=== PATIENT | female | born 2000 | race Caucasian/White ===

== ENCOUNTER → 2021-01-07 | Outpatient (CLI) | payer BC, MEDICAID ==
--- NOTE | 2021-01-07 10:56 | Diagnostic Imaging Report ---
INDICATION: survey. TECHNIQUE: Multiple real-time grayscale images were obtained over the gravid uterus. COMPARISON: None. FINDINGS: There is a single live fetus in a breech presentation. heart rate was recorded at 143 BPM. Placenta is anterior. Amniotic fluid volume is normal. Cervical length is 3.6 cm. kidneys, bladder, and stomach are unremarkable. brain is unremarkable. There is a four-chamber heart. There is a three-vessel cord with normal insertion. spine is unremarkable. Biometrical measurements are as follows: Biparietal 4.83 cm, age 20 weeks 5 days. Head circumference 17.97 cm, age 20 weeks 3 days. Abdominal circumference 14.72 cm, age 20 weeks 1 days. Femur length 3.15 cm, age 19 weeks 6 days. Sonographic estimate age: 20 weeks 2 days. Sonographic estimated date of delivery: 05/25/2021. Estimated Weight: 325 gm (+/- 47 gm). LMP percentile: 29%. heart rate: 143 beats per minute. number: 1 of 1. IMPRESSION: Single live IUP at 20 weeks 2 days gestational age. Estimated date of confinement sonographically is 05/25/2021. Dictated by: Dictated on workstation # [id number]
== END ==
LOC: RAD 09:42
PROVIDERS: ATTEND Nurse Practitioner Women's Health
DX: Z34.92 Encounter for supervision of normal pregnancy, unspecified, second trimester (principal); Z3A.20 20 weeks gestation of pregnancy
CPT/HCPCS: 76805

== ENCOUNTER 2021-05-24 08:03 | Inpatient (IN) | payer MEDICAID ==
[~2021-05-24] VITALS: Ht 165.1 cm; Wt 71.3 kg
[2021-05-24] VITALS (25 sets, daily range): BP systolic 115–129; BP diastolic 69–82
[2021-05-24] MEDS: D5 LR IV SOLUTION 1,000 ML IV SCH ×4 (09:35→20:40)
[2021-05-24] MEDS ORDERED: AMPICILLIN 2,000 MG/14.8 ML (IV USE) ONE (11:00)
[2021-05-24] MEDS ORDERED: AMPICILLIN FOR IV USE 2,000 MG in WATER (STERILE) FOR INJECTION 14.8 ML IV ONE (11:00)
[2021-05-24] MEDS ORDERED: WATER (STERILE) FOR INJECTION 10 ML ONE (11:03)
[2021-05-24] MEDS: AMPICILLIN FOR IV USE 1,000 MG in WATER (STERILE) FOR INJECTION 7.4 ML IV SCH ×3 (15:52→21:34)
[2021-05-24] MEDS ORDERED: LIDOCAINE/EPI 1%-1:200,000 (XYLOCAINE) 30 ML VIAL INJ ONE (16:15)
[2021-05-24 17:00] LABS: BASOPHILS % (AUTO) 0 % (0-10); EOSINOPHILS % (AUTO) 0 % (0-10); HEMATOCRIT 36 % (35-52); HEMOGLOBIN 12.7 g/dL (11.5-16.0); LYMPHOCYTES # (AUTO) 1.6 10^3/uL (1.0-4.0); LYMPHOCYTES % (AUTO) 16 % (12-44); MEAN CORPUSCULAR HEMOGLOBIN 31 pg (25-34); MEAN CORPUSCULAR HGB CONC 35 g/dL (32-36); MEAN CORPUSCULAR VOLUME 88 fL (80-99); MONOCYTES # (AUTO) 0.7 10^3/uL (0.0-1.0); MONOCYTES % (AUTO) 8 % (0-12); NEUTROPHILS # (AUTO) 7.5 10^3/uL (1.8-7.8); NEUTROPHILS % (AUTO) 76 % (42-75); PLATELET COUNT 199 10^3/uL (130-400); WHITE BLOOD COUNT 9.9 10^3/uL (4.3-11.0)
[2021-05-24] MEDS ORDERED: HYDROmorphone 2 MG/ML VIAL (DILAUDID) IV ONE ×2 (21:30→23:45)
[2021-05-24] MEDS ORDERED: HYDROmorphone 2 MG/ML VIAL (DILAUDID) ONE ×2 (21:31→23:45)
[2021-05-24] MEDS ORDERED: CATHETER FLUSH 10 ML SYR IV SCH (22:00)
[2021-05-25] VITALS (58 sets, daily range): BP systolic 111–199; BP diastolic 57–93
[2021-05-25] MEDS ORDERED: fentaNYL 2 mcg/ml BUPIVA 0.125 100 ML ONE (00:31)
[2021-05-25] MEDS: AMPICILLIN FOR IV USE 1,000 MG in WATER (STERILE) FOR INJECTION 7.4 ML IV SCH ×2 (00:35→04:51)
[2021-05-25] MEDS ORDERED: BUPIVACAINE 0.25% 30 ML (SENSORCAINE) VIAL ONE (01:08)
[2021-05-25] MEDS ORDERED: fentaNYL INJ 100 MCG/2 ML AMP ONE (01:08)
[2021-05-25] MEDS ORDERED: EPIDURAL (fentaNYL 2 MCG/ML BUPIVA 0.125%)100 ML BAG EPI PRN (01:45)
[2021-05-25] MEDS ORDERED: LACTATED RINGERS 1,000 ML IV SCH (01:45)
[2021-05-25] MEDS ORDERED: ONDANSETRON 4 MG/2 ML (SDV) Z0FRAN IV PRN (01:45)
[2021-05-25] MEDS ORDERED: diphenhydrAMINE 50 MG/ML INJ (BENADRYL) IV PRN (01:45)
[2021-05-25] MEDS ORDERED: NALOXONE 0.4 MG/ML 1 ML (NARCAN) VIAL IV PRN (01:45)
[2021-05-25] MEDS: D5 LR IV SOLUTION 1,000 ML IV SCH ×2 (04:50→20:07)
--- NOTE | 2021-05-25 06:31 | History & Physical-OB/GYN ---
OB - Chief Complaint & HPI Date/Time Date of Admission: Date of Admission: May 24, 2021 at 16:00 Time Seen by a Provider: 06:30 Chief Complaint/History OB-Reason for Admission/Chief: Onset of Labor Hx : 1 Hx Para: 0 Hx Last Menstrual Period: 08/24/2020 Estimated Date of Conception: 05/31/2021 Expected Date of Delivery: May 25, 2021 Gestational Age in Weeks: 39 Gestational Age in Days: 6 History of Labs O+, antibody screen negative GBS pos VDRL NR HIV NR Rubella immune DMS 89 Initial Hgb 15.1, followup 13.0 Allergies and Home Medications Allergies Coded Allergies: No Known Drug Allergies (Unverified , 05/24/21) Patient Home Medication List Home Medication List Reviewed: Yes OB - History Hx of Present Care: Yes Ultrasounds: Normal mid trimester US Obstetrical Complications: None Medical Complications: None Information Induced Hypertension: No Maternal Gestational Diabetes: No Hemorrhage: No Obstetrical History Hx : 1 Hx Para: 0 Patient Past Medical History Scoliosis Social History/Family History Alcohol Use: Denies Use Recreational Drug Use: No 2nd Hand Smoke Exposure: No Immunizations Hepatitis A: Yes Hepatitis B: Yes OB - Admission Exam Physical Exam Vitals: Vital Signs 05/25/21 05/25/21 03:30 05:00 Temp 37.5 Pulse 102 Resp 20 B/P (MAP) 134/83 (100) Pulse Ox 97 O2 Delivery Room Air HEENT: NCAT Heart: Rhythm Normal Lungs: Clear Abdomen: Gravid Extremities: Normal Cervical Dilatation: 9cm Effacement: 100% Station: +1 Membranes: Ruptured Amniotic Fluid: Clear Heart Rate: 140's Accelerations: Accelerations Present Decelerations: No Decelerations Retirement Variability: Average (6-25) Contractions on Admission: None Labs Laboratory Tests Test 05/24/21 16:50 Range/Units White Blood Count 9.9 4.3-11.0 10^3/uL Red Blood Count 4.12 3.80-5.11 10^6/uL Hemoglobin 12.7 11.5-16.0 g/dL Hematocrit 36 35-52 % Mean Corpuscular Volume 88 80-99 fL Mean Corpuscular Hemoglobin 31 25-34 pg Mean Corpuscular Hemoglobin Concent 35 32-36 g/dL Red Cell Distribution Width 12.6 10.0-14.5 % Platelet Count 199 130-400 10^3/uL Mean Platelet Volume 10.0 9.0-12.2 fL Immature Granulocyte % (Auto) 0 % Neutrophils (%) (Auto) 76 H 42-75 % Lymphocytes (%) (Auto) 16 12-44 % Monocytes (%) (Auto) 8 0-12 % Eosinophils (%) (Auto) 0 0-10 % Basophils (%) (Auto) 0 0-10 % Neutrophils # (Auto) 7.5 1.8-7.8 10^3/uL Lymphocytes # (Auto) 1.6 1.0-4.0 10^3/uL Monocytes # (Auto) 0.7 0.0-1.0 10^3/uL Eosinophils # (Auto) 0.0 0.0-0.3 10^3/uL Basophils # (Auto) 0.0 0.0-0.1 10^3/uL Immature Granulocyte # (Auto) 0.0 0.0-0.1 10^3/uL OB - Assessment/Plan/Diagnosis Assessment Assessment: active labor Admission Dx 21 year old @ 39 weeks 6 days gestation Active labor SROM 2100 GBS pos Admission Status: Inpatient Order (span 2 midnights) Reason for Inpatient Admission: Active labor Plan Plan: Expectant Management Supervisory-Addendum Brief Verification & Attestation Participated in pt care: history, physical Personally performed: exam, history Care discussed with: Medical Student Procedures: n/a LILLY GONZALEZ MED STUDENT May 25, 2021 06:31
[2021-05-25] MEDS ORDERED: OXYTOCIN PRE-MIX DRIP 500 ML IV ONE ×2 (07:21→09:11)
[2021-05-25] MEDS ORDERED: LIDOCAINE/EPI 2% 1:200,00 (XYLOCAINE) 20 ML VIAL ONE (07:21)
[2021-05-25] MEDS: OXYTOCIN PRE-MIX DRIP 500 ML IV SCH ×2 (08:35→09:12)
[2021-05-25] MEDS ORDERED: METHYLERGONOVINE 0.2 MG/ML (METHERGINE) AMP ONE (08:44)
[2021-05-25] MEDS ORDERED: CARBOPROST (HEMABATE) 250 MCG/ML AMP IM ONE (08:59)
[2021-05-25] MEDS ORDERED: LORazepam INJ 2 MG/ML (ATIVAN) VIAL ONE (09:10)
[2021-05-25] MEDS ORDERED: DIBUCAINE 1% OINTMENT 30 GM TUBE TOP PRN (09:15)
[2021-05-25] MEDS ORDERED: MEASLES,MUMPS,RUBELLA 1 EA INJ SQ ONE (09:15)
[2021-05-25] MEDS ORDERED: BENZOCAINE/MENTHOL (DERMOPLAST) 56 ML CAN TP PRN (09:15)
[2021-05-25] MEDS ORDERED: WITCH HAZEL(TUCKS) 40 EA JAR TOP PRN (09:15)
[2021-05-25] MEDS ORDERED: TETANUS,DIPTH,PERTUSS P/F (BOOSTRIX) 0.5 ML VIAL IM ONE (09:15)
[2021-05-25] MEDS ORDERED: HYDROcodone/APAP 5 MG/325 MG (LORTAB) TAB PO PRN (09:15)
--- NOTE | 2021-05-25 11:17 | OB Labor & Delivery Record ---
L&D History Date of Service Date of Service: May 25, 2021 History Expected Date of Delivery: May 25, 2021 Gestational Age in Weeks: 39 Hx : 1 Hx Para: 0 Complications Events: Routine care Operative Indications (Cesarea: N/A-Vaginal Delivery Intrapartal Events: None L&D Stage1 Stage One Onset of Labor - Date: May 25, 2021 Monitors and Tracing Monitor Mode: External Heart Rate: 130 Monitor Decelerations: None Station: 0 Nursing Home Variability: Average (6-10) Short Term Variability: Present Presentation: Vertex Vital Signs VS - Last 72 Hours, by Label 05/24/21 05/24/21 05/24/21 05/24/21 08:30 08:30 08:30 09:00 Temp 37.3 37.3 37.3 Pulse 73 73 73 80 Resp 20 20 20 20 B/P (MAP) 115/75 (88) 116/71 (86) Pulse Ox 100 100 100 99 O2 Delivery Room Air Room Air Room Air Room Air 05/24/21 05/24/21 05/24/21 05/24/21 09:30 09:45 10:00 10:15 Pulse 81 80 76 72 Resp 20 20 20 20 B/P (MAP) 124/78 (93) 127/79 (95) 121/77 (92) 115/69 (84) Pulse Ox 98 99 99 98 O2 Delivery Room Air Room Air Room Air Room Air 05/24/21 05/24/21 05/24/21 05/24/21 10:30 10:45 11:00 11:15 Temp 37.1 Pulse 77 76 74 67 Resp 20 20 20 20 B/P (MAP) 122/70 (87) 124/74 (91) 123/74 (90) 124/75 (91) Pulse Ox 97 98 98 98 O2 Delivery Room Air Room Air Room Air Room Air 05/24/21 05/24/21 05/24/21 05/24/21 11:30 12:15 12:45 13:00 Temp 37.6 37.3 Pulse 67 74 87 68 Resp 20 20 20 20 B/P (MAP) 118/75 (89) 118/78 (91) 116/74 (88) 120/76 (91) Pulse Ox 98 O2 Delivery Room Air Room Air Room Air Room Air 05/24/21 05/24/21 05/24/21 05/24/21 13:30 14:00 14:30 15:00 Temp 37.0 Pulse 73 67 79 77 Resp 20 20 20 20 B/P (MAP) 120/77 (91) 115/73 (87) 126/82 (97) 121/77 (92) O2 Delivery Room Air Room Air Room Air Room Air 05/24/21 05/24/21 05/24/21 05/24/21 16:00 17:00 18:00 18:59 Temp 37.5 37.4 37.4 Pulse 75 75 75 67 Resp 20 20 20 20 B/P (MAP) 123/78 (93) 127/74 (91) 127/74 (91) 129/75 (93) O2 Delivery Room Air Room Air Room Air Room Air 05/24/21 05/24/21 05/24/21 05/25/21 20:41 22:43 23:43 00:43 Temp 37.1 37.0 36.8 Pulse 68 78 70 88 Resp 20 20 20 20 B/P (MAP) 115/72 (86) 127/75 (92) 121/74 (90) 128/66 (86) Pulse Ox 99 99 99 O2 Delivery Room Air Room Air Room Air Room Air 05/25/21 05/25/21 05/25/21 05/25/21 01:12 01:15 01:20 01:23 Pulse 91 109 106 107 Resp 20 20 20 20 B/P (MAP) 149/66 (93) 151/74 (99) 136/79 (98) 143/67 (92) Pulse Ox 100 96 96 96 O2 Delivery Room Air Room Air Room Air Room Air 05/25/21 05/25/21 05/25/21 05/25/21 01:26 01:29 01:32 01:35 Pulse 88 89 93 97 Resp 20 20 20 20 B/P (MAP) 141/67 (91) 148/66 (93) 148/71 (96) 136/68 (90) Pulse Ox 96 97 95 95 O2 Delivery Room Air Room Air Room Air Room Air 05/25/21 05/25/21 05/25/21 05/25/21 01:38 01:41 01:45 01:50 Pulse 86 76 85 79 Resp 20 20 20 20 B/P (MAP) 134/69 (90) 130/72 (91) 130/77 (94) 130/76 (94) Pulse Ox 95 95 95 95 O2 Delivery Room Air Room Air Room Air Room Air 05/25/21 05/25/21 05/25/21 05/25/21 01:55 02:00 02:15 02:30 Temp 37.2 Pulse 77 83 96 83 Resp 20 20 20 20 B/P (MAP) 131/70 (90) 131/83 (99) 136/84 (101) 130/75 (93) Pulse Ox 95 96 97 95 O2 Delivery Room Air Room Air Room Air Room Air 05/25/21 05/25/21 05/25/21 05/25/21 02:45 03:00 03:15 03:30 Temp 37.5 Pulse 80 98 82 101 Resp 20 20 20 20 B/P (MAP) 144/82 (102) 143/93 (110) 144/85 (104) 134/78 (96) Pulse Ox 96 98 98 97 O2 Delivery Room Air Room Air Room Air Room Air 05/25/21 05/25/21 05/25/21 05/25/21 03:45 04:00 04:15 04:30 Pulse 82 106 95 95 Resp 20 20 20 20 B/P (MAP) 139/81 (100) 132/85 (101) 132/78 (96) Pulse Ox 97 96 98 96 O2 Delivery Room Air Room Air Room Air Room Air 05/25/21 05/25/21 05/25/21 05/25/21 04:45 05:00 05:15 05:30 Temp 37.4 Pulse 96 102 100 102 Resp 20 20 20 20 B/P (MAP) 141/82 (101) 134/83 (100) 133/84 (100) 137/83 (101) Pulse Ox 96 97 97 97 O2 Delivery Room Air Room Air Room Air Room Air 05/25/21 05/25/21 05/25/21 05/25/21 05:45 06:00 06:15 06:30 Pulse 100 109 98 100 Resp 20 20 20 20 B/P (MAP) 148/85 (106) 138/82 (100) 138/82 (100) 133/79 (97) Pulse Ox 95 98 94 96 O2 Delivery Room Air Room Air Room Air Room Air 05/25/21 05/25/21 06:45 07:00 Temp 37.3 Pulse 103 105 Resp 20 20 B/P (MAP) 143/81 (101) 123/80 (94) Pulse Ox 98 96 O2 Delivery Room Air Room Air Rupture of Membranes Spontaneous Ruture of Membrane: Yes Amniotic Membrane Rupture Time: 2104 Amniotic Membrane Fluid Desc.: Clear Vaginal Bleeding Description: Normal Show Induction/Anesthesia Epidural Cath Placement - Time: 012 Progress/Notes Patient progressed to complete and + 2 station with epidural received. L&D Stage2 Stage Two Stage II Date: May 25, 2021 Monitors and Tracing Monitor Mode: External Heart Rate: 130 Monitor Decelerations: None Appeals Court Associate Justice Variability: Average (6-10) Short Term Variability: Present Position: Right Occiput Anterior Presentation: Vertex Cord Descript/Complications Cord Vessel Description: 3 Vessels Delivery Type Delivery Method: Spontaneous Vaginal Anterior Shoulder: Left Episiotomy/Perineal Laceration Laceraction(s)/Extensions: Yes Episiotomy Description: Vaginal Extension/lac, 2nd degree Degree (describe repair) 2nd degree laceration repaired using 3-0 rapide and 2-0 vicryl suture in usual fashion. Condition of Infant Delivery 1 minute Comment: 8 5 minute Comment: 9 Notes Live male weight 8lbs 3 oz Condition of Condition of : Living Exam: No Observed Abnormalities Resuscitation Resuscitation: N/A - Spontaneous Resp L&D Stage3 Stage Three Stage III Date: May 25, 2021 Pictocin Pitocin Administration Comment: 30 mu wide open after delivery of placenta Placenta Delivery Placenta Delivery: Spontaneous Delivery Summary Summary Estimated blood loss (mL): 700 Attending at delivery: Leelee Lindsey DO Condition of Delivery Examined: Cervix Examined, Uterus Explored Post Hemorrhage: Yes Intervention Required Slow uterine tone noted at first, 0.2 mg of methergine ordered. Good tone resulted from this, however, continued to bleed moderately heavy therefore 800 mcg of misoprostol placed WI. Blood clots evacuated and 250 mcg carboprost given IM with good response, and bleeding became scant. Condition of Mother stable Condition of (s) stable LEELEE LINDSEY DO May 25, 2021 11:17
[2021-05-25] MEDS: IBUPROFEN 600 MG (MOTRIN) TAB PO SCH ×2 (13:13→18:34)
[2021-05-25] MEDS ORDERED: CATHETER FLUSH 10 ML SYR IV SCH (14:00)
[2021-05-25] MEDS ORDERED: ceFAZolin INJECTION 1,000 MG in WATER (STERILE) FOR INJECTION 10 ML IV ONE (19:30)
[2021-05-25 19:53] LABS: BASOPHILS % (AUTO) 0 % (0-10); EOSINOPHILS % (AUTO) 0 % (0-10); HEMATOCRIT 25 % (35-52); HEMOGLOBIN 8.9 g/dL (11.5-16.0); LYMPHOCYTES # (AUTO) 1.5 10^3/uL (1.0-4.0); LYMPHOCYTES % (AUTO) 12 % (12-44); MEAN CORPUSCULAR HEMOGLOBIN 31 pg (25-34); MEAN CORPUSCULAR HGB CONC 35 g/dL (32-36); MEAN CORPUSCULAR VOLUME 87 fL (80-99); MONOCYTES # (AUTO) 1.1 10^3/uL (0.0-1.0); MONOCYTES % (AUTO) 8 % (0-12); NEUTROPHILS # (AUTO) 10.4 10^3/uL (1.8-7.8); NEUTROPHILS % (AUTO) 80 % (42-75); PLATELET COUNT 143 10^3/uL (130-400); WHITE BLOOD COUNT 13.1 10^3/uL (4.3-11.0)
[2021-05-26] MEDS: IBUPROFEN 600 MG (MOTRIN) TAB PO SCH ×4 (03:34→21:20)
[2021-05-26 03:55] VITALS: BP 106/53
[2021-05-26] MEDS: DOCUSATE SODIUM 100 MG (COLACE) CAP PO SCH ×2 (04:45→09:09)
[2021-05-26 06:02] LABS: BASOPHILS % (AUTO) 0 % (0-10); EOSINOPHILS % (AUTO) 0 % (0-10); HEMATOCRIT 25 % (35-52); HEMOGLOBIN 8.5 g/dL (11.5-16.0); LYMPHOCYTES # (AUTO) 1.6 10^3/uL (1.0-4.0); LYMPHOCYTES % (AUTO) 14 % (12-44); MEAN CORPUSCULAR HEMOGLOBIN 31 pg (25-34); MEAN CORPUSCULAR HGB CONC 35 g/dL (32-36); MEAN CORPUSCULAR VOLUME 88 fL (80-99); MEAN PLATELET VOLUME 10.2 fL (9.0-12.2); MONOCYTES # (AUTO) 0.8 10^3/uL (0.0-1.0); MONOCYTES % (AUTO) 7 % (0-12); NEUTROPHILS # (AUTO) 8.8 10^3/uL (1.8-7.8); NEUTROPHILS % (AUTO) 78 % (42-75); PLATELET COUNT 148 10^3/uL (130-400); WHITE BLOOD COUNT 11.3 10^3/uL (4.3-11.0)
--- NOTE | 2021-05-26 07:32 | Postpartum Progress Note ---
Note Note Day # 1 Subjective: Patient is without complaints. Ambulating to the bathroom with assistance, voiding. Tolerating a regular diet without nausea or vomiting. Normal lochia. Pain is well controlled with oral pain medications. Formula feeding. Objective: Vitals: temp 37.1, pulse 98, respirations 18, BP 106/53, O2 98% on room air Labs: Hgb 8.5 Physical Exam: General - Alert and oriented, no apparent distress Abdomen - Soft, appropriately tender to palpation, non-distended, fundus firm at umbilicus Extremities - no edema, negative Merle's bilaterally Heart: RRR, normal S1 S2 Lungs: clear to auscultation Assessment: Post- day # 1, status post spontaneous vaginal delivery. Recovering well, afebrile, tolerating diet Acute blood loss anemia Plan: Routine care. Encourage ambulation. Ferrous sulfate supplementation. Plan for discharge 05/27/2021 Vitals - Labs Vital Signs - I&O Vital Signs Date Time Temp Pulse Resp B/P (MAP) Pulse Ox O2 Delivery O2 Flow Rate FiO2 05/26/21 03:55 37.1 98 18 106/53 (70) 98 Room Air 05/25/21 23:52 37.5 90 18 111/57 (75) 96 Room Air 05/25/21 18:33 37.9 94 18 122/78 (93) 98 Room Air 05/25/21 15:29 98 18 115/63 (80) Room Air 05/25/21 13:08 37.8 94 18 100 Room Air 05/25/21 12:29 94 18 123/74 (90) Room Air 05/25/21 12:14 77 18 124/74 (91) Room Air 05/25/21 11:59 78 18 129/75 (93) Room Air 05/25/21 11:44 37.2 82 18 131/79 (96) Room Air 05/25/21 11:29 77 18 125/74 (91) Room Air 05/25/21 11:14 81 18 132/82 (99) Room Air 05/25/21 10:59 97 18 129/84 (99) Room Air 05/25/21 10:45 91 18 123/78 (93) Room Air 05/25/21 10:30 76 18 129/79 (96) Room Air 05/25/21 10:15 99 18 136/75 (95) Room Air 05/25/21 10:13 37.2 05/25/21 10:00 83 18 140/93 (109) Room Air 05/25/21 09:45 107 18 135/84 (101) Room Air 05/25/21 09:42 36.9 05/25/21 09:30 36.7 104 18 132/83 (99) Room Air 05/25/21 09:15 74 18 142/83 (102) Room Air 05/25/21 09:00 121 18 126/70 (88) Room Air 05/25/21 08:45 110 18 130/71 (90) Room Air 05/25/21 08:15 164 20 199/75 (116) Room Air 05/25/21 08:00 86 20 137/76 (96) Room Air 05/25/21 07:45 155 20 154/75 (101) Room Air 05/25/21 07:30 123 20 134/80 (98) Room Air 05/25/21 07:15 36.7 111 20 117/73 (88) 98 Room Air I & O 05/26/21 07:00 Intake Total 1010 ml Balance 1010 ml Labs Laboratory Tests 05/25/21 16:45: White Blood Count 13.1H, Red Blood Count 2.91L, Hemoglobin 8.9#L, Hematocrit 25L , Mean Corpuscular Volume 87, Mean Corpuscular Hemoglobin 31, Mean Corpuscular Hemoglobin Concent 35, Red Cell Distribution Width 12.6, Platelet Count 143, Mean Platelet Volume 10.0, Immature Granulocyte % (Auto) 0, Neutrophils (%) (Auto) 80H, Lymphocytes (%) (Auto) 12, Monocytes (%) (Auto) 8, Eosinophils (%) (Auto) 0, Basophils (%) (Auto) 0, Neutrophils # (Auto) 10.4H, Lymphocytes # (Auto) 1.5, Monocytes # (Auto) 1.1H, Eosinophils # (Auto) 0.0, Basophils # (Au to) 0.0, Immature Granulocyte # (Auto) 0.1 05/26/21 05:36: White Blood Count 11.3H, Red Blood Count 2.77L, Hemoglobin 8.5L, Hematocrit 25L, Mean Corpuscular Volume 88, Mean Corpuscular Hemoglobin 31, Mean Corpuscular Hemoglobin Concent 35, Red Cell Distribution Width 12.8, Platelet Count 148, Mean Platelet Volume 10.2, Immature Granulocyte % (Auto) 0, Neutrophils (%) (Auto) 78H, Lymphocytes (%) (Auto) 14, Monocytes (%) (Auto) 7, Eosinophils (%) (Auto) 0, Basophils (%) (Auto) 0, Neutrophils # (Auto) 8.8H, Lymphocytes # (Auto) 1.6, Monocytes # (Auto) 0.8, Eosinophils # (Auto) 0.0, Basophils # (Auto) 0.0, Immature Granulocyte # (Auto) 0.1 LILLY GONZALEZ MED STUDENT May 26, 2021 07:32
[2021-05-26] MEDS ORDERED: FERROUS SULF 325 MG (IRON) TAB PO SCH (09:00)
[2021-05-26 09:14] VITALS: BP 111/60
[2021-05-26] MEDS: PRENATAL VITAMIN 1 EA TAB PO SCH (09:16)
[2021-05-26 12:30] VITALS: BP 104/57
--- NOTE | 2021-05-26 14:14 | Anesthesia-Regional Post-Op ---
Regional Patient Condition Mental Status: Alert, Oriented x3 Circulation: Same as Pre-Op Headache: Absent Sensation: Full Recovery Motor Block: Absent Post Op Complications Complications None Follow Up Care/Instructions Patient Instructions None needed. Anesthesia/Patient Condition Patient is doing well, no complaints, stable vital signs, no apparent adverse anesthesia problems. No complications reported per nursing. MARIO ORO CRNA May 26, 2021 14:14
[2021-05-26 15:10] VITALS: BP 111/70
[2021-05-26] MEDS: FERROUS SULF 325 MG (IRON) TAB PO SCH (19:36)
[2021-05-26 21:31] VITALS: BP 110/74
[2021-05-27 02:59] VITALS: BP 116/72
[2021-05-27] MEDS: IBUPROFEN 600 MG (MOTRIN) TAB PO SCH ×2 (03:00→09:54)
--- NOTE | 2021-05-27 06:44 | Postpartum Progress Note ---
Note Note Day # 2 Subjective: Patient is without complaints. Ambulating, voiding. Tolerating a regular diet without nausea or vomiting. Normal lochia. Pain is well controlled with oral pain medications. Objective: Physical Exam: General - Alert and oriented, no apparent distress Abdomen - Soft, appropriately tender to palpation, non-distended, fundus firm at umbilicus Extremities - no edema, negative Merle's bilaterally Assessment: PPD 2 NVD Acute blood loss anemia Plan: Routine care. Encourage breast feeding. Encourage ambulation. Ferrous sulfate supplementation. Plan for discharge today Vitals - Labs Vital Signs - I&O Vital Signs Date Time Temp Pulse Resp B/P (MAP) Pulse Ox O2 Delivery O2 Flow Rate FiO2 05/27/21 02:59 35.9 67 18 116/72 (87) 99 Room Air 05/26/21 21:31 36.7 78 18 110/74 (86) 99 Room Air 05/26/21 15:10 36.7 92 18 111/70 (84) Room Air 05/26/21 12:30 36.5 94 18 104/57 (73) Room Air 05/26/21 09:14 36.8 94 18 111/60 (77) 97 Room Air LEELEE LINDSEY DO May 27, 2021 06:44
--- NOTE | 2021-05-27 06:45 | Discharge Inst-Women's Service ---
Discharge Inst-Women's Serv Depart Medication/Instructions New, Converted or Re-Newed RX: RX on Chart Final Diagnosis PPD 2 NVD Problems Reviewed?: Yes Consults/Follow Up Additional Follow Up: Yes Orders/Referrals Dr. Lindsey in 6 weeks Activity Activity: Activity as Tolerated Driving Instructions: No Driving for 1 Week NO SMOKING: NO SMOKING Nothing Inside Vagina: No Douching, No [place], No Tampons Diet Discharge Diet: No Restrictions Symptoms to Report to : Bleeding Excessive, Pain Increased, Fever Over 101 Degrees F, Vaginal Bleeding Increase, Questions/Concerns For Any Problems or Questions: Contact Your Physician LEELEE LINDSEY DO May 27, 2021 06:45
[2021-05-27] MEDS ORDERED: FERR325T24 PO (06:46)
[2021-05-27] MEDS ORDERED: PNV1TABL67 PO (06:46)
[2021-05-27] MEDS ORDERED: IBUP-844 PO (06:46)
[2021-05-27] MEDS ORDERED: DCS100C PO (06:46)
[2021-05-27] MEDS ORDERED: ACHD5005 PO (06:46)
[2021-05-27] MEDS ORDERED: BENZ78AE5 TP (06:46)
[2021-05-27 08:30] VITALS: BP 110/70
[2021-05-27] MEDS: PRENATAL VITAMIN 1 EA TAB PO SCH (09:54)
[2021-05-27] MEDS: FERROUS SULF 325 MG (IRON) TAB PO SCH (09:54)
== END 2021-05-27 12:00 | disposition home or self-care (01) | DRG 806 ==
LOC: WSo 08:03 → LDRP 08:03 → WSo 16:00 → LDRP 05-25 16:00
PROVIDERS: ADMIT Obstetrics & Gynecology; ATTEND Obstetrics & Gynecology
PROC: 10E0XZZ Delivery of Products of Conception, External Approach (ICD-10-PCS; principal; 2021-05-25)
PROC: 0KQM0ZZ Repair Perineum Muscle, Open Approach (ICD-10-PCS; 2021-05-25)
DX: O99.824 Streptococcus B carrier state complicating childbirth (principal); O33.0 Maternal care for disproportion due to deformity of maternal pelvic bones; Z37.0 Single live birth; D62 Acute posthemorrhagic anemia; Z3A.39 39 weeks gestation of pregnancy; O70.1 Second degree perineal laceration during delivery; O90.81 Anemia of the puerperium
CPT/HCPCS: 36415; 85025; 86780; 86850; 86900; 86901; 99212

== ENCOUNTER → 2022-07-13 | Outpatient (CLI) | payer MEDICAID ==
[~2022-07-13] MED LIST: ACHD5005 PO; BENZ78AE5 TP; DOCU-239 PO; FERR325T24 PO; IBUP-844 PO; PNV1TABL67 PO
--- NOTE | 2022-07-13 15:42 | Diagnostic Imaging Report ---
PROCEDURE: Pelvic comp/transvaginal sonogram. TECHNIQUE: Complete transabdominal and transvaginal pelvic ultrasound was performed. In addition, limited pelvic Doppler was performed. INDICATION: Pelvic and perineal pain. FINDINGS: The uterus is retroverted measuring 6.6 x 4.2 x 5.3 cm. The endometrium is 5 mm in thickness. No myometrial mass is detected. The right ovary measures 2.6 x 1.7 x 1.9 cm and the left ovary measures 2.8 x 1.8 x 2.7 cm. The ovaries contain small follicles. There is blood flow to the ovaries. No adnexal mass is seen. There is a small amount of free fluid in the posterior cul-de-sac. IMPRESSION: Unremarkable transabdominal and transvaginal pelvic ultrasound. Dictated by: Dictated on workstation # [id number]
--- NOTE | 2022-07-13 15:46 | Diagnostic Imaging Report ---
PROCEDURE: US Abdomen, limited. TECHNIQUE: Multiple Real-time grayscale images were obtained over the abdomen in various projections. INDICATION: Low back pain. FINDINGS: The right kidney measures 11.4 x 3.2 x 3.5 cm and the left kidney measures 11.5 x 5.1 x 5.1 cm. The cortical thickness and echogenicity are normal bilaterally. No calculi are seen. There is no hydronephrosis. Bilateral ureteral jets are visualized. IMPRESSION: Unremarkable renal ultrasound. Dictated by: Dictated on workstation # [id number]
== END ==
LOC: RAD 13:11
PROVIDERS: ATTEND Obstetrics & Gynecology
DX: M54.41 Lumbago with sciatica, right side (principal); R10.2 Pelvic and perineal pain
CPT/HCPCS: 76705; 76830; 76856